=== PATIENT | female | born 1980 | race Two or more races ===

== ENCOUNTER 2017-02-23 15:15 | Emergency (ER) | payer BC ==
[2017-02-23 15:23] VITALS: TEMP 98.1; BMI 34.4
[2017-02-23] MEDS ORDERED: ONDANSETRON 4 MG/2 ML VIAL IVPUSH ONE (16:16)
[2017-02-23] MEDS ORDERED: ACETAMINOPHEN 1000 MG/100 ML VIAL (NON FORMULARY) IVPB ONE (16:16)
[2017-02-23] MEDS ORDERED: SODIUM CHLORIDE 1,000 ML IV STA ×2 (16:16→17:48)
[2017-02-23] MEDS ORDERED: ACETAMINOPHEN INJECTION 100 ML IVPB ONE (16:32)
[2017-02-23 16:35] LABS: BASOPHIL 0.6 % (0-2.0); EOSINOPHIL 0.3 % (0-4.5); MCH 26.7 pg (25.7-33.7); MCHC 32.5 g/dl (32.0-36.0); MEAN CELL VOLUME 82.1 fl (80-96); MEAN PLT VOLUME 7.7 fl (7.5-11.1); NEUTROPHILS 70.9 % (42.8-82.8); PLATELET COUNT 281 K/MM3 (134-434); RDW 13.2 % (11.6-15.6); WHITE BLOOD COUNT 11.9 K/mm3 (4.0-10.0)
[2017-02-23 16:41] LABS: URINE APPEARANCE CLOUDY; URINE BILIRUBIN NEGATIVE (NEGATIVE); URINE BLOOD NEGATIVE (NEGATIVE); URINE COLOR AMBER; URINE GLUCOSE (UA) NEGATIVE (NEGATIVE); URINE KETONE 1+ (NEGATIVE); URINE NITRITE NEGATIVE (NEGATIVE); URINE UROBILINOGEN NEGATIVE mg/dL (0.2-1.0)
[2017-02-23 16:49] LABS: URINE PROTEIN 2+ (NEGATIVE)
[2017-02-23 16:50] LABS: URINE MUCUS MODERATE; URINE RBC 4; URINE WBC 8
--- NOTE | 2017-02-23 16:59 | PDOC ---
History of Present Illness - General Chief Complaint: Vomiting/Diarrhea Stated Complaint: MIGRAINE/ 10 WKS PREG Time Seen by Provider: 02/23/17 16:15 History Source: Patient Exam Limitations: No Limitations - History of Present Illness Initial Comments: 02/23/17 17:58 36-year-old female currently 10 weeks presents with nausea and vomiting since onset of decreased by mouth intake now with worsening generalized headache and weakness. Patient states feels dizzy and is unable to eat due to nausea and vomiting. Patient states took herbal medication as recommended by her SEWER CLEANER but after did not work she was given Zofran which she refused and she felt it was could've caused her to have a miscarriage. Patient states is currently impregnated via IVF and states miscarried in September at 5 weeks and very cautious of medications. Patient denies abdominal pain but does state strong smelling urine which appears dark but denies fever, chills or foul smelling urine Timing/Duration: getting worse Severity: moderate Associated Symptoms: reports: headaches, nausea/vomiting Past History - Travel Traveled outside of the country in the last 30 days: No Close contact w/someone who was outside of country & ill: No - Past Medical History Allergies/Adverse Reactions: Allergies Allergy/AdvReac Type Severity Reaction Status Date / Time aspirin Allergy Verified 02/23/17 15:23 Home Medications: Ambulatory Orders NK [No Known Home Medication] 02/23/17 Asthma: Yes COPD: No - Surgical History Cholecystectomy: Yes - Reproductive History Is Patient Now?: Yes (#): 3 Para: 2 - Suicide/Smoking/Psychosocial Hx Smoking History: Never smoked Information on smoking cessation initiated: No Hx Alcohol Use: No Drug/Substance Use Hx: No Substance Use Type: None Patient Lives Alone: No Lives with/in: spouse/SO Review of Systems - Review of Systems Able to Perform ROS?: Yes Constitutional: No: Symptoms Reported HEENTM: No: Symptoms Reported Respiratory: No: Symptoms reported Cardiac (ROS): No: Symptoms Reported ABD/GI: Yes: Nausea, Poor Appetite, Poor Fluid Intake, Vomiting : No: Symptoms Reported Musculoskeletal: No: Symptoms Reported Integumentary: No: Symptoms Reported Neurological: Yes: Headache, Weakness (mild generalized). No: Dizziness *Physical Exam - Vital Signs Last Vital Signs Temp Pulse Resp BP Pulse Ox 98.1 F 103 H 18 153/95 99 02/23/17 15:20 02/23/17 15:20 02/23/17 15:20 02/23/17 15:20 02/23/17 15:20 - Physical Exam General Appearance: Yes: Nourished, Appropriately Dressed. No: Apparent Distress HEENT: positive: EOMI, PATTIE, TMs Normal, Pharynx Normal (dry oropharynx) Neck: positive: Supple Respiratory/Chest: positive: Lungs Clear, Normal Breath Sounds. negative: Respiratory Distress, Accessory Muscle Use Cardiovascular: positive: Regular Rhythm, Regular Rate. negative: Murmur Gastrointestinal/Abdominal: positive: Soft. negative: Tenderness Extremity: negative: Pedal Edema Integumentary: positive: Normal Color, Warm, Moist Neurologic: positive: Motor Strength 5/5 (ambulatory) ED Treatment Course - LABORATORY CBC & Chemistry Diagram: 02/23/17 16:28 02/23/17 16:28 - ADDITIONAL ORDERS Additional order review: 02/23/17 16:28 RBC 5.04 MCV 82.1 MCHC 32.5 RDW 13.2 MPV 7.7 Neutrophils % 70.9 Lymphocytes % 20.1 Monocytes % 8.1 Eosinophils % 0.3 Basophils % 0.6 - Medications Given in the ED: ED Medications Discontinued Medications Generic Name Dose Route Start Last Admin Trade Name Freq PRN Reason Stop Dose Admin Acetaminophen 1,000 mg 02/23/17 16:16 02/23/17 16:34 Ofirmev Injection - IVPB 02/23/17 16:17 1,000 mg ONCE ONE Administration Ondansetron HCl 4 mg 02/23/17 16:16 02/23/17 16:34 Zofran Injection IVPUSH 02/23/17 16:17 Not Given ONCE ONE Medical Decision Making - Medical Decision Making 02/23/17 17:57 Patient for evaluation of nausea vomiting unrelieved with natural remedies. Patient states was prescribed Zofran but did not take it since she fell the side effects were severe. Patient on exam appear dry and weak. Patient ordered for labs, urine, IV fluids, IV Tylenol and Reglan 02/23/17 18:01 Laboratory Tests 02/23/17 02/23/17 02/23/17 16:28 16:28 16:28 WBC 11.9 H Hgb 13.5 Hct 41.4 Plt Count 281 Neutrophils % 70.9 Sodium 137 Potassium 3.9 Chloride 102 Carbon Dioxide 24 Anion Gap 11 BUN 7 Creatinine 0.6 Random Glucose 87 Calcium 8.7 Magnesium 2.1 Total Bilirubin 0.4 AST 13 L ALT 15 Alkaline Phosphatase 67 Total Protein 7.7 Albumin 3.2 L Lipase 92 Urine Protein 2+ H Urine Ketones 1+ H Urine Nitrite Negative Ur Leukocyte Esterase Pending Urine WBC (Auto) 8 Urine RBC (Auto) 4 Urine Mucus Moderate Pt ordered for 2nd bag of ivf. urine cx sent. 02/23/17 18:19 Patient will be discharged home with Keflex. Patient also recommended to take Reglan as needed for nausea. Next and patient also recommended to eat small frequent meals and follow-up with her SHELL WORKER. *DC/Admit/Observation/Transfer Diagnosis at time of Disposition: Nausea and vomiting in , Headache - Discharge Dispostion Disposition: HOME Condition at time of disposition: Improved - Referrals Referrals: Desirae Gomes MD [Primary Care Provider] - - Patient Instructions Printed Discharge Instructions: Malena May Improve Nausea Symptoms in , DI for Urinary Tract Infection (UTI) Additional Instructions: Least take Keflex as prescribed for urinary tract infection. Please take Reglan as needed for nausea. Please eat small frequent meals and follow up with your SHELL WORKER. - Post Discharge Activity
[2017-02-23 17:03] LABS: ALBUMIN 3.2 g/dl (3.4-5.0); ALK PHOS 67 U/L (45-117); ANION GAP 11 (8-16); BILIRUBIN,TOTAL 0.4 mg/dL (0.2-1.0); CALCIUM 8.7 mg/dL (8.5-10.1); CO2 24 mmol/L (21-32); CREATININE 0.6 mg/dL (0.55-1.02); GLUCOSE,RANDOM 87 mg/dL (74-106); MAGNESIUM 2.1 mg/dL (1.8-2.4); SGOT/AST 13 U/L (15-37); SGPT/ALT 15 U/L (12-78); TOT PROT 7.7 g/dl (6.4-8.2)
[2017-02-23] MEDS ORDERED: METOCLOPRAMIDE HCL INJECTION 10 MG/2 ML VIAL ONE (17:53)
[2017-02-23] MEDS ORDERED: METOCLOPRAMIDE HCL INJECTION 10 MG/2 ML VIAL IVPB ONE (17:55)
[2017-02-23 18:53] VITALS: BP 133/88; PULSE 90
[2017-02-23 22:00] LABS: URINE LEUK ESTERASE Negative (NEGATIVE)
== END 2017-02-23 19:04 | disposition home or self-care (01) ==
LOC: JER 15:15
PROC: 3E0337Z Introduction of Electrolytic and Water Balance Substance into Peripheral Vein, Percutaneous Approach (ICD-10-PCS; principal; 2017-02-23)
PROC: 3E033NZ Introduction of Analgesics, Hypnotics, Sedatives into Peripheral Vein, Percutaneous Approach (ICD-10-PCS; 2017-02-23)
PROC: 3E033GC Introduction of Other Therapeutic Substance into Peripheral Vein, Percutaneous Approach (ICD-10-PCS; 2017-02-23)
DX: O26.891 Other specified pregnancy related conditions, first trimester (principal); O21.0 Mild hyperemesis gravidarum; R51 Headache; Z3A.10 10 weeks gestation of pregnancy
CPT/HCPCS: 36415; 80053; 81003; 81015; 83690; 83735; 85025; 87086; 99282-25

== ENCOUNTER 2017-09-15 07:40 | Inpatient (IN) | payer BC ==
[2017-09-15 08:16] VITALS: BMI 34.4
[2017-09-15] MEDS ORDERED: CITRIC ACID/SODIUM CITRATE 30 ML UNIT-DOSE CUP PO ONE ×2 (08:20→09:20)
[2017-09-15] MEDS ORDERED: morphine SULFATE/Preservative Free 0.5 MG/ML (1cc Syringe) ONE (09:09)
[2017-09-15] MEDS ORDERED: ELECTROLYTE-148 SOLN 500 ML IV ONE ×3 (09:20→10:00)
--- NOTE | 2017-09-15 09:31 | HP ---
Past Medical History - Admission History of Present Illness: 36 yo @ 39 3/7 wks by fist trimester ultrasound, EDC 09/19/2017 complicated by: 1. Prior CD - desiring repeat and tubal ligation 2. GDMA2 - on insulin Failed early GCT screen, suspected pregestational diabetes Last EFW September 12 2017, 8 lb 3 oz (6%) 3. Obesity - 21 lb weight gain this 4. IVF 5. AMA - reassuring testing Patient presents for routine scheduled delivery. She reports movement, denies leakage of fluid, vaginal bleeding or pain. - Past Medical History Cardiovascular: No: HTN Pulmonary: Yes: Asthma Gastrointestinal: No: GERD ...: 5 ...Para: 2 ...Term: 2 ...: 2 ...Spon : 0 ...Induced : 0 ...Multiple Gestation: 0 ...LMP: 12/14/16 ... Weeks Gestation by Dates: 39.2 ...EDC by Dates: 09/20/17 ...EDC by Sono: 09/19/17 Heme/Onc: No: Anemia - Past Surgical History Past Surgical History: Yes: Cholecystectomy, Hx Myomectomy: No Hx Transabdominal Cerclage: No Additional Surgical History: D&C x3 - Smoking History Smoking history: Never smoked Have you smoked in the past 12 months: No - Alcohol/Substance Use Hx Alcohol Use: No Home Medications - Allergies Allergies/Adverse Reactions: Allergies Allergy/AdvReac Type Severity Reaction Status Date / Time aspirin Allergy Severe Difficulty Verified 09/11/17 15:28 Breathing - Home Medications Home Medications: Ambulatory Orders Albuterol 0.083% Nebulizer Mili [Ventolin 0.083% Nebulizer Soln -] 1 neb NEB PRN PRN 09/02/17 Pnv No.95/Ferrous Fum/Folic AC [ Vitamin Tablet] 1 each PO DAILY Insulin NPH Human Isophane [Novolin N] 25 units SQ BIDAC 09/11/17 Insulin Sliding Scale [Novolog Vial Sliding Scale -] 20 units SQ BIDAC 09/11/17 Family Disease History - Family Disease History Family History: Denies Review of Systems - Review of Systems Constitutional: reports: No Symptoms Cardiovascular: reports: No Symptoms Respiratory: reports: No Symptoms Gastrointestinal: reports: No Symptoms Genitourinary: reports: No Symptoms Musculoskeletal: reports: No Symptoms Neurological: reports: No Symptoms Psychiatric: reports: No Symptoms Physical Exam - Maternity Vital Signs: Vital Signs Temperature 98.2 F 09/15/17 07:40 Pulse Rate 109 H 09/15/17 07:40 Respiratory Rate 20 09/15/17 07:40 Blood Pressure 127/87 09/15/17 07:40 O2 Sat by Pulse Oximetry (%) Constitutional: Yes: Well Nourished, No Distress, Calm Cardiovascular: Yes: Regular Rate and Rhythm Lungs: Clear to auscultation - Abdominal Exam/OB Number of Fetuses: Single Presentation: Vertex Contractions: Yes Regularity: Irregular Category: I Accelerations: Non-Uniform Decelerations: None - Physical Exam Edema: No Psychiatric: Yes: Alert, Oriented - Labs Lab Results: PNL: B positive, antibody negative; RPR NR; HBS Ag negative; Rubella immune; GCT - failed, as above, GBS negative Hemorrhage Risk Assessment - Risk Factors Medium Risk Factors: Yes: None High Risk Factors: Yes: None Risk Score: 1 Risk Level: Medium Risk Assessment/Plan 36 yo for repeat delivery and bilateral tubal ligation 1. Admit to L&D 2. Consents reviewed and signed. Risks including infection, bleeding, damage to surrounding organs such as bowel and bladder, injury to , wound infection and separation discussed. Reviewed risk of tubal ligation failure, regret and ectopic discussed. Written consent obtained 3. Plan fro D5LR PP 4. Ancef 2 g flat ironer to OR 5. Will proceed to OR
[2017-09-15] MEDS ORDERED: ePHEDrine SULFATE 50 MG/1 ML AMPULE ONE (09:37)
[2017-09-15] MEDS ORDERED: PHENYLEPHRINE HCL 10 MG/1 ML SINGLE DOSE VIAL ONE (09:38)
[2017-09-15] MEDS ORDERED: ceFAZolin SODIUM 1 GM VIAL ONE (09:39)
[2017-09-15] MEDS ORDERED: ELECTROLYTE-148 SOLN 1,000 ML IV SCH (10:00)
[2017-09-15] MEDS ORDERED: ONDANSETRON 4 MG/2 ML VIAL IVPUSH PRN (10:26)
[2017-09-15 10:43] LABS: ARTERIAL BLOOD GAS BASE EXCESS -4.7 meq/l (-2-2); ARTERIAL BLOOD GAS PO2 24.6 mmHg (80-100); ARTERIAL BLOOD GAS pH 7.32 (7.35-7.45)
[2017-09-15 10:48] LABS: VENOUS PH 7.25 (7.32-7.42); VENOUS PO2 11.1 mmHg (28-48)
[2017-09-15] MEDS ORDERED: oxyCODONE HCL 5 MG TABLET PO PRN (11:08)
[2017-09-15] MEDS ORDERED: IBUPROFEN 600 MG TABLET (FP) PO PRN (11:08)
[2017-09-15] MEDS ORDERED: METHYLERGONOVINE MALEATE 0.2 MG/1 ML AMP IM PRN (11:08)
--- NOTE | 2017-09-15 11:18 | PN ---
"Delivery - Delivery Section: Repeat EBL (cc): 700 Delivery, Single - Condition of Infant Gender: Female Weight: 8 lb Position: Left, OT - 1 Minute Total Score: 9 5 Minutes Total Score: 9 - Feeding Plan Initial Plan: Elected not to breastfeed exclusively throughout hospitalization Remarks - Remarks Remarks: Surgeon: Eliseo; Assist: Magdy Anesthesia: En[place]in[place], spinal EBL: 700 | UOP: 100 | IVF: 1600 Surgery: Repeat CD via Pfannensteil incision and bilateral tubal ligation Findings: Female infant; LOT position, nuchal cord noted and reduced, 8 lbs 0 oz , 20 inches; 9,9; normal tubes and ovaries bilaterally Dictation: [id number]"
[2017-09-15] MEDS: IBUPROFEN 800 MG/8 ML IJ IVPB PRN ×2 (11:51→22:19)
[2017-09-15] MEDS ORDERED: IBUPROFEN 800 MG/8 ML IJ IVPB ONE (11:54)
[2017-09-15] MEDS ORDERED: D5W-LR W/ 20 UNITS OXYTOCIN 20 UNIT/1,000 ML INFUS.BAG IV SCH (12:45)
--- NOTE | 2017-09-15 13:12 | OP ---
DATE OF OPERATION: 09/15/2017 ATTENDING PHYSICIAN: Desirae Gomes MD PREOPERATIVE DIAGNOSIS: Intrauterine at 39 weeks, prior section desiring a repeat, tubal ligation, gestational diabetes. POSTOPERATIVE DIAGNOSIS: Intrauterine at 39 weeks, prior section desiring a repeat, tubal ligation, gestational diabetes. SURGEON: Desirae Gomes MD JOURNALISM INTERN: Marvel Curran MD ANESTHESIA: Spinal. ANESTHESIOLOGIST: Alvarez Jarquin MD ESTIMATED BLOOD LOSS: 700 mL. URINE OUTPUT: 100. IV FLUID: 1600. SURGERY: Repeat section via Pfannenstiel skin incision and bilateral tubal ligation. FINDINGS: A female infant in LOT position. Nuchal cord is reduced, 8 pounds 0 ounces, 20 inches. Apgars 9/9. Normal tubes and ovaries bilaterally. INDICATIONS: The patient is a 36-year-old 5, para 2 with history of prior with GDMA 2 on insulin prior section desiring permanent sterilization. She was counseled regarding repeat section. Risks, benefits, alternatives, and complications were discussed including infection, bleeding, damage to surrounding organs such as bowel, bladder, injury to , wound infection, wound separation. We also discussed the risks of tubal ligation including regret, tubal ligation failure, ectopic . She expressed understanding and was brought to the operating room. DESCRIPTION OF PROCEDURE: When anesthesia was found to be adequate, the patient was prepped and draped in the normal sterile fashion and placed in the dorsal supine position with a leftward tilt. Approximately an 11-cm skin incision was made with a knife and carried down to the underlying rectus muscle using the Bovie electrocautery. The fascia was nicked in the midline and extended laterally using electrocautery. The inferior portion of the facial incision was tented up using Moustapha clamps and dissected off the underlying rectus muscles using the Mendoza scissors. Attention was brought to the superior portion where in a similar fashion it was tented up using Moustapha clamps and dissected off the underlying rectus muscle using Mendoza scissors. The rectus muscles were in the midline and peritoneum was entered sharply using Metzenbaum scissors, and the peritoneal incision was extended superiorly and inferiorly using Metzenbaum scissors. The Robert retractor was placed in the abdominal to allow adequate visualization of the abdominal pelvis. The edges of the retractor were examined and no bowel was noted to be compressed by the retractor ring. The vesicouterine peritoneium was entered sharply and the bladder flap was created sharply. A cluster of venous sinus on the edge of the bladder flap was noted, and bleeding was controlled using electrocautery. Hysterotomy was performed. Clear fluid was noted. The hysterotomy incision was extended superiorly laterally using the bandage scissors. The 's head was brought to the hysterotomy site and delivered atraumatically followed by shoulders and body without difficulty. Nuchal cord was noted and reduced. The cord was clamped and cut. Cord blood and cord gases were collected and sent. The infant was handed to awaiting NICU staff. The placenta was manually extracted. The uterus was cleared of all clot and debris. The uterus was closed using 0 Vicryl in running fashion with a0 2nd layer in an imbricating fashion. Attention was brought to the left fallopian tube, which was followed to its fimbriated end. A 2-cm portion of the fallopian tube was identified and suture ligated using 0 plain gut x2. The pedicles were noted to be hemostatic. Attention was brought to the right fallopian tube, which was followed to its fimbriated end. The right fallopian tube was suture ligated using plain gut x2. Good hemostasis noted on pedicles. Bilateral ovaries were noted to be normal appearing. Copious irrigation was performed. At this point in time, the venous sinuses were noted to have mild oozing, and a layer of Surgicel was placed over the hysterotomy and bladder flap with good hemostasis noted after placement. The peritoneum was closed using 2-0 Biosyn in a running fashion. The fascia was closed using 0 Vicryl in a running fashion. The subcutaneous fat was closed using 2-0 plain gut in a running fashion, and the skin was re-approximated using 3-0 Vicryl. The patient tolerated the procedure well. The patient was brought to the recovery room in stable condition. Ivelisse [id number] MTDD
--- NOTE | 2017-09-16 07:28 | PN ---
Post Progress Note - Subjective Subjective: Pain well controlled, voided, ambulated Post Day: 1 Type of Delivery: Repeat C/S Vital Signs: Vital Signs Temperature 98.4 F 09/16/17 06:00 Pulse Rate 85 09/16/17 06:00 Respiratory Rate 20 09/16/17 06:00 Blood Pressure 118/69 09/16/17 06:00 O2 Sat by Pulse Oximetry (%) 100 09/15/17 12:15 Breast Exam: Yes: Soft Uterus: Yes: Fundus Firm Incision: Yes: Dressing dry and intact Abdomen/GI: Yes: Abdomen soft Lochia: Yes: Rubra Lochia, amount: Small Extremities: Yes: Calves non-tender Assessment/Plan 36yo P3 s/p repeat c/section VSS, Afebrile Doing well Encourage ambulation Regular diet this am 2hr GTT 6wk PP she had GDMA2 Rh pos no need for RhoGam Routine PP care
[2017-09-16 08:32] LABS: BASO % 0.5 % (0-2.0); EOS % 0.3 % (0-4.5); HEMATOCRIT 28.2 % (32.4-45.2); HEMOGLOBIN 8.9 GM/dL (10.7-15.3); LYMPH % 14.3 % (8-40); MCH 22.1 pg (25.7-33.7); MCHC 31.6 g/dl (32.0-36.0); MEAN CELL VOLUME 69.9 fl (80-96); MEAN PLT VOLUME 8.9 fl (7.5-11.1); MONO % 11.3 % (3.8-10.2); NEUT % 73.6 % (42.8-82.8); PLATELET COUNT 172 K/MM3 (134-434); RBC 4.04 M/mm3 (3.60-5.2); RDW 19.1 % (11.6-15.6)
[2017-09-16] MEDS: ENOXAPARIN NA (PORCINE) 40 MG/0.4 ML DISP.SYRIN SQ SCH (09:57)
[2017-09-16] MEDS: SIMETHICONE 80 MG TAB.CHEW (FP) PO PRN ×4 (10:43→22:34)
[2017-09-16] MEDS: ACETAMINOPHEN 325 MG TABLET (FP) PO PRN ×4 (10:43→22:33)
[2017-09-16] MEDS: oxyCODONE HCL 5 MG TABLET PO PRN ×4 (10:44→22:32)
[2017-09-16] MEDS ORDERED: BISACODYL 10 MG SUPP.RECT RC PRN (11:08)
[2017-09-16] MEDS ORDERED: DIPHTH,PERTUSS(ACELL),TET 0.5 ML DISP.SYRIN IM ONE (18:00)
[2017-09-17] MEDS: ACETAMINOPHEN 325 MG TABLET (FP) PO PRN ×4 (04:31→22:02)
[2017-09-17] MEDS: oxyCODONE HCL 5 MG TABLET PO PRN ×2 (04:33→22:02)
[2017-09-17] MEDS: SIMETHICONE 80 MG TAB.CHEW (FP) PO PRN ×3 (04:33→22:02)
[2017-09-17] MEDS: ENOXAPARIN NA (PORCINE) 40 MG/0.4 ML DISP.SYRIN SQ SCH (09:31)
[2017-09-17] MEDS: SENNOSIDES/DOCUSATE COMBO (SENNA PLUS) TABLET (UD) PO PRN (22:02)
[2017-09-18] MEDS: SIMETHICONE 80 MG TAB.CHEW (FP) PO PRN ×4 (04:43→20:23)
[2017-09-18] MEDS: ACETAMINOPHEN 325 MG TABLET (FP) PO PRN ×4 (04:43→20:23)
[2017-09-18] MEDS: oxyCODONE HCL 5 MG TABLET PO PRN ×4 (04:43→20:23)
[2017-09-18 08:50] LABS: BASO % 0.9 % (0-2.0); HEMATOCRIT 28.4 % (32.4-45.2); LYMPH % 22.7 % (8-40); MCH 21.9 pg (25.7-33.7); MCHC 31.6 g/dl (32.0-36.0); MEAN CELL VOLUME 69.3 fl (80-96); MEAN PLT VOLUME 8.8 fl (7.5-11.1); MONO % 8.1 % (3.8-10.2); NEUT % 66.3 % (42.8-82.8); PLATELET COUNT 237 K/MM3 (134-434); RDW 19.6 % (11.6-15.6); WHITE BLOOD COUNT 8.4 K/mm3 (4.0-10.0)
[2017-09-18] MEDS: ENOXAPARIN NA (PORCINE) 40 MG/0.4 ML DISP.SYRIN SQ SCH (09:34)
--- NOTE | 2017-09-18 10:19 | PN ---
Post Progress Note - Subjective Subjective: Patient without acute complaints. Reports tolerating oral intake without nausea or vomiting. Ambulating without dizziness. Denies fevers or chills. Pain well controlled with oral pain medication. without difficulty. Passing flatus. Post Day: 3 Type of Delivery: Repeat C/S Vital Signs: Vital Signs Temperature 98.8 F 09/18/17 08:04 Pulse Rate 91 H 09/18/17 08:04 Respiratory Rate 18 09/18/17 08:04 Blood Pressure 128/80 09/18/17 08:04 O2 Sat by Pulse Oximetry (%) 100 09/15/17 12:15 Breast Exam: Yes: Engorged Uterus: Yes: Fundus Firm, Fundus below umbilicus Incision: Yes: Sutures intact. No: Redness, Oozing Abdomen/GI: Yes: Abdomen soft, Tender (mild incisional), Passing flatus, Tolerating PO Lochia: Yes: Serosa Lochia, amount: Small Extremities: Yes: Calves non-tender, Edema (trace) Activity: Ambulating - Labs Labs: CBC WBC 8.4 K/mm3 (4.0-10.0) 09/18/17 08:20 RBC 4.10 M/mm3 (3.60-5.2) 09/18/17 08:20 Hgb 9.0 GM/dL (10.7-15.3) L 09/18/17 08:20 Hct 28.4 % (32.4-45.2) L 09/18/17 08:20 MCV 69.3 fl (80-96) L 09/18/17 08:20 MCH 21.9 pg (25.7-33.7) L 09/18/17 08:20 MCHC 31.6 g/dl (32.0-36.0) L 09/18/17 08:20 RDW 19.6 % (11.6-15.6) H 09/18/17 08:20 Plt Count 237 K/MM3 (134-434) D 09/18/17 08:20 MPV 8.8 fl (7.5-11.1) 09/18/17 08:20 Absolute Neuts (auto) 5.6 # 09/18/17 08:20 Neutrophils % 66.3 % (42.8-82.8) 09/18/17 08:20 Lymphocytes % 22.7 % (8-40) D 09/18/17 08:20 Monocytes % 8.1 % (3.8-10.2) 09/18/17 08:20 Eosinophils % 2.0 % (0-4.5) D 09/18/17 08:20 Basophils % 0.9 % (0-2.0) 09/18/17 08:20 Nucleated RBC % 0 % (0-0) 09/18/17 08:20 Assessment/Plan 36 yo POD # 3 s/p repeat CD + BTL, afebrile, vital signs stable, doing well 1. Continue routine postoperative care. 2. Encourage ambulation and incentive spirometer use 3. Continue oral pain medication 4. Anticipate discharge home postoperative day #4
--- NOTE | 2017-09-18 10:24 | DS ---
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 Vital Signs: Vital Signs Temperature 98.8 F 09/18/17 08:04 Pulse Rate 91 H 09/18/17 08:04 Respiratory Rate 18 09/18/17 08:04 Blood Pressure 128/80 09/18/17 08:04 O2 Sat by Pulse Oximetry (%) 100 09/15/17 12:15 Labs: CBC, BMP 09/18/17 08:20 Delivery - Delivery Section: Repeat Type of Anesthesia: Spinal EBL (cc): 700 Delivery, Single - Stages of Labor Date of Delivery: 09/15/17 Time of Delivery: 10:06 Time Placenta Delivered: 10:10 - Condition of Ship Unloader/Hyperbaric Tech Present: Yes Name: Shanita Lynn Infant Gender: Female Weight: 8 lb Position: Left, OT Total Hours ROM (Hrs/Mins): 1min - 1 Minute Total Score: 9 5 Minutes Total Score: 9 - Feeding Plan Initial Plan: Elected not to breastfeed exclusively throughout hospitalization Discharge Summary Reason For Visit: C/SECTION Current Active Problems delivery delivered (Acute) Gestational diabetes (Acute) Procedures: Principal: delivery Hospital Course: Patient was admitted for routine delivery POD # 1 patient ambulated, voiding, passing gas, tolerating oral intake and with adequate pain control. Noted to have mild asymptomatic anemia She fulfilled all criteria for discharge POD #4 Condition: Good - Instructions Diet, Activity, Other Instructions: Physical activity Resume your normal everyday activity as tolerated no heavy lifting or exercise until seen by your surgeon. You may walk unlimited inna of and climb stairs. You may resume driving the car when you feel safe and comfortable behind the wheel. No sexual activity as instructed. Wound care If you have a bandage, leave it on, and keep dry for 48-72 hours. After that time discard the outer bandage. If they are tapes on the skin under the out of bandage leave them in place. They will peel off in the next 7 to 10 days. Do Not Peel them off. You may shower the day after surgery. If there are tapes present on the skin, you may shower over them. Diet There are no dietary restrictions. Eat healthy, high-fiber foods. Drink 6 to 8 glasses of liquid each day. This will assist in keeping your bowels are regular. Pain management You may take Tylenol or acetaminophen or Ibuprofen (for example, Motrin, Advil etc.) from my pain prescription medication is ordered should be taken as prescribed for moderate to severe pain. Call MD for any of the following: Severe pain not relieved by medication Fever of 101 or higher Excessive bleeding or drainage on dressing Inability to urinate [facility] Reference #: [id number] Referrals: Desirae Gomes MD [Staff Physician] - Disposition: HOME - Home Medications Comprehensive Discharge Medication List: Ambulatory Orders Albuterol 0.083% Nebulizer Mili [Ventolin 0.083% Nebulizer Soln -] 1 neb NEB PRN PRN 09/02/17 Pnv No.95/Ferrous Fum/Folic AC [ Vitamin Tablet] 1 each PO DAILY Insulin NPH Human Isophane [Novolin N] 25 units SQ BIDAC 09/11/17 Insulin Sliding Scale [Novolog Vial Sliding Scale -] 20 units SQ BIDAC 09/11/17 Oxycodone HCl/Acetaminophen [Percocet 5-325 mg Tablet -] 1 tab PO Q6H #20 tab MDD 4 09/18/17
[2017-09-18 10:36] LABS: ANISOCYTOSIS 1+
[2017-09-18] MEDS ORDERED: oxyCODONE HCL 5 MG TABLET ONE (15:58)
[2017-09-18] MEDS ORDERED: oxyCODONE HCL 5 MG TABLET PO PRN (16:06)
[2017-09-18] MEDS: SENNOSIDES/DOCUSATE COMBO (SENNA PLUS) TABLET (UD) PO PRN (20:24)
[2017-09-19] MEDS: SIMETHICONE 80 MG TAB.CHEW (FP) PO PRN (02:06)
[2017-09-19] MEDS: oxyCODONE HCL 5 MG TABLET PO PRN (02:06)
[2017-09-19] MEDS: ACETAMINOPHEN 325 MG TABLET (FP) PO PRN ×2 (02:08→09:43)
--- NOTE | 2017-09-19 07:46 | PN ---
Progress Note (short form) - Note Progress Note: ppd 2, no c/o voids ok , no excess vaginal bleeding CBC, BMP 09/18/17 08:20 Last Vital Signs Temp Pulse Resp BP Pulse Ox 99.5 F 95 H 18 118/72 100 09/18/17 21:28 09/18/17 21:28 09/18/17 21:28 09/18/17 21:28 09/15/17 12:15 abdomen soft , no distension, no cva incision dry, clean no calf tenderness plan d/c home, cont. BGM follow up with pcp [facility], MERLYN 09/18/17 08:20
[2017-09-19] MEDS: ENOXAPARIN NA (PORCINE) 40 MG/0.4 ML DISP.SYRIN SQ SCH (09:27)
[2017-09-19 10:26] VITALS: BP 108/64; PULSE 64; TEMP 98.1
--- NOTE | 2017-09-22 13:29 | PATH ---
Surgical Pathology Report Patient Name: ALBANIA TRINIDAD [facility]. Rec. #: [id number] /Age/Gender: 1980 (Age: 36) / F Account: [id number] Location: [facility] OBS/FINGER WAVER Taken: 09/15/2017 Received: 09/16/2017 Reported: 09/22/2017 Physicians: Desirae Gomes Specimen(s) Received A: PLACENTA B: RIGHT FALLOPIAN TUBE C: LEFT FALLOPIAN TUBE Clinical History 5 para 2 repeat section, 39.2 weeks by dates, 39.3 weeks by sonogram Gestational diabetes mellitus, insulin-dependent Final Diagnosis A. PLACENTA: THIRD TRIMESTER PLACENTA WITH FOCAL INFARCTION (1 CM IN LARGEST DIMENSION). TRIVASCULAR CORD. MEMBRANES WITH NO DIAGNOSTIC ABNORMALITIES. B. RIGHT PORTION OF FALLOPIAN TUBE: COMPLETE CROSS SECTION OF THE FALLOPIAN TUBE IDENTIFIED. C. LEFT PORTION OF FALLOPIAN TUBE: COMPLETE CROSS SECTION OF THE FALLOPIAN TUBE IDENTIFIED. Electronically Signed Bessy Kat M.D. Gross Description A. The specimen is received fresh labeled placenta and is a 620 gram, 23 x 17 x 3 cm. placenta with attached membranes and umbilical cord. The attached membranes are glistening and translucent and insert marginally. The umbilical cord measures 27 cm. in length and averages 1.1 cm. in diameter. The cord inserts eccentrically, 8 cm. to the nearest margin. No true knots or strictures are identified. Cut surface of the umbilical cord reveals 3 vessels. The surface is nguyen-blue with minimal fibrin deposition and appropriate caliber vessels. The maternal surface is red-brown with focal defects. Sectioning reveals red-brown, spongy parenchyma. A 1 cm in greatest dimension area of consolidation is identified. Watchstander sections are submitted in three cassettes as follows: 1- membrane rolls and umbilical cord; 2-3- full thickness sections of placenta. B. Received fresh labelled "right fallopian tube" is a 1.8 cm long by 0.6 cm in diameter portion of tissue consistent with a portion of fallopian tube. The fimbriated end is not identified. No focal lesions are identified. Sectioned and totally submitted in one cassette. C. Received fresh labelled "left fallopian tube" is a 2.1 cm long by 0.7 cm in diameter portion of tissue consistent with a portion of fallopian tube. The fimbriated end is not identified. No focal lesions are identified. Sectioned and totally submitted in one cassette. [facility]/09/18/2017 [facility]/09/18/2017
== END 2017-09-19 10:29 | disposition home or self-care (01) | DRG 766 ==
LOC: JLDR 07:40 → J3W 12:56
PROVIDERS: ADMIT Obstetrics & Gynecology; ATTEND Obstetrics & Gynecology
PROC: 10D00Z1 Extraction of Products of Conception, Low, Open Approach (ICD-10-PCS; principal; 2017-09-15)
PROC: 0UB70ZZ Excision of Bilateral Fallopian Tubes, Open Approach (ICD-10-PCS; 2017-09-15)
DX: O34.211 Maternal care for low transverse scar from previous cesarean delivery (principal); O24.414 Gestational diabetes mellitus in pregnancy, insulin controlled; O69.81X0 Labor and delivery complicated by cord around neck, without compression, not applicable or unspecified; O26.893 Other specified pregnancy related conditions, third trimester; J45.909 Unspecified asthma, uncomplicated; Z3A.39 39 weeks gestation of pregnancy; Z37.0 Single live birth; Z30.2 Encounter for sterilization
CPT/HCPCS: 36415; 36600; 82803; 82947; 82962; 85025; 88302-TC; 88307-TC; 90715